=== PATIENT | male | born 1990 | race Caucasian/White ===

== ENCOUNTER 2025-08-31 07:41 | Emergency (ER) | payer OTHER, SELFPAY ==
[2025-08-31 07:43] VITALS: BP 121/74
--- NOTE | 2025-08-31 07:58 | EDRN ---
[facility] in room w/ pt at this time.
--- NOTE | 2025-08-31 08:08 | ED.MUSCINJ ---
HPI-Injury
General
Chief Complaint: Musculo-Skeletal Complaint
Source: patient
Time Seen by Provider: 08/31/25 07:50
History of Present Illness-Injury
Initial Injury comments:
35-year-old male presents complaining of pain and swelling to the anterior left knee with pain and bruising to the medial left calf. This started after an injury he sustained. He was in a trench and twisted his ankle but then also twisted his knee
at the same time. This happened about a week ago and has been having increasing pain since then. No chest pain or shortness of breath. Is healthy otherwise. No other complaints
Phy Exam
Physical Exam
Physical Exam:
General: Well-appearing male no acute respiratory distress
HEENT: Normal cephalic atraumatic
Musculoskeletal exam: Left knee has prepatellar bursitis which is tender but not erythematous or hot. He has ecchymosis and tenderness over the medial left calf with ecchymosis spreading into the distal martinez into the heel. The distal fibula and
tibia are nontender. He has good range of motion to the ankle he is able to straight leg raise with the left knee. The left knee is stable ligament exam.
Vascular: Left calf is tender. 2+ DP pulse left foot
Injury Course
Orders/Labs/Results
Orders:
Orders
08/31/25 08:07
CR Leg Tibia/fibula Left 2 Vw Urgent
Comment:
Reason For Exam: pain
Venous Doppler Lwr Ext Left [US Periph Venous LOWER Ext LT] Urgent
Comment:
Reason For Exam: pain, swelling
08/31/25 09:30
Knee Immobilizer Left-Treatmen ONCE
MDM/Problems Addressed
Differential Diagnosis Includes:
Left knee and calf pain. Consider muscular strain versus bursitis. Do not suspect infectious source given lack of erythema or warmth from the area. Patient concerned about DVT which is less likely given the ecchymosis on the skin but will order
ultrasound of the leg to rule this out and x-ray of the tib-fib.
*Pulse Oximetry
SaO2: 100
Oxygen Mode of Delivery: Room air
Patient hypoxic: no
*Critical Care Note
Total Time (30-74mins, 75-104mins- exclusive of procedures): Not Applicable
Update Note
Update Note:
X-ray negative for fracture ultrasound negative for DVT. Suspect calf strain and prepatellar bursitis. Offered knee immobilizer. Recommended rest and anti-inflammatories. Stable for discharge
ED Attending Note
-
Portions of this chart may have been created with voice recognition software.� Occasional wrong word or��sound alike� substitutions may have occurred due to the inherent limitations of voice recognition software.
Discharge Plan
Departure
Patient Disposition: Home (Routine Discharge)
Date of Disposition: 08/31/25
Time of Disposition: 09:31
Patient with high blood pressure during this ER visit?: No
Discharge Problem:
Bursitis, prepatellar, Strain of calf muscle
Instructions: Muscle and Bone Pain (DC)
Activity Restrictions/Additional Instructions:
Rest. Use brace for support. Use ibuprofen or Tylenol for pain. Turn if worse otherwise follow-up with your
Interventions
Interventions:
*Risk Screen - Suicide Last Done: 08/31/25 08:13
*General Assessment Last Done: 08/31/25 08:13
*Neglect/Abuse Screening Last Done: 08/31/25 07:43
*ED- Fall Risk Assessment Last Done: 08/31/25 08:13
*ED COVID-19 Vaccine History Last Done: 08/31/25 08:13
*ED Influenza Vaccine History Last Done: 08/31/25 08:13
ED-Musculoskeletal Assessment Last Done: 08/31/25 08:14
Discharge Date and Time
Print Language: INDONESIAN
[2025-08-31 08:12] VITALS: BMI 25.1
[2025-08-31 08:15] VITALS: BP 118/78
--- NOTE | 2025-08-31 08:29 | EDRN ---
[place] [facility]
--- NOTE | 2025-08-31 09:33 | EDRN ---
[facility] in room w/ pt at this time.
== END 2025-08-31 10:00 | disposition home or self-care (01) ==
LOC: EMR 07:41
PROVIDERS: EMERGENCY PHYSICIAN Emergency Medicine
DX: M70.42 Prepatellar bursitis, left knee (principal); S86.119A Strain of other muscle(s) and tendon(s) of posterior muscle group at lower leg level, unspecified leg, initial encounter; X50.1XXA Overexertion from prolonged static or awkward postures, initial encounter; Y92.89 Other specified places as the place of occurrence of the external cause
CPT/HCPCS: 99284; 29505; 73590; 93971